=== PATIENT | female | born 1995 | race African-American/Black ===

== ENCOUNTER 2019-03-02 12:30 | Emergency (ER) | payer MEDICAID ==
[~2019-03-02] VITALS: Ht 167.6 cm; Wt 72.6 kg
[2019-03-02 13:53] LABS: Hematocrit 24.8 % (36.0-46.0); Hemoglobin 8.5 g/dL (12.2-16.2); Mean Corpuscular Hemoglobin 31.1 pg (28.0-32.0); Mean Corpuscular Hgb Conc. 34.3 g/dL (32.0-36.0); Mean Corpuscular Volume 90.7 fL (80.0-100.0); Platelet Count (auto) 371 10^3/uL (140-450); Red Blood Cells 2.73 10^6/uL (4.0-5.20); Red Cell Distribution Width 16.5 % (11.8-14.3); White Blood Cell 8.6 10^3/uL (4.4-10.8)
[2019-03-02] MEDS ORDERED: SODIUM CHLORIDE 0.9% 1,000 ML IV ONE ×2 (13:53→16:00)
[2019-03-02 14:03] LABS: Basophils % (manual) 0 (0.0-2.0); Blast Cells 0; Metamyelocytes % 0; Myelocytes % 0; Promyelocytes % 0; Reactive Lymphocytes 0
[2019-03-02 14:07] LABS: Albumin 3.8 g/dL (3.4-5.0); BUN/Creatinine Ratio 7.5; Calcium 8.5 mg/dL (8.5-10.1); Potassium 3.4 mmol/L (3.5-5.1)
[2019-03-02 14:10] LABS: Bilirubin, Total 1.3 mg/dL (0.2-1.0)
[2019-03-02] MEDS ORDERED: PROMETHAZINE HCL 25 MG/ML 1ML IV ONE (14:15)
[2019-03-02] MEDS ORDERED: MORPHINE SULFATE 4 MG/ML SYR/VIAL IV ONE (14:15)
[2019-03-02 14:41] LABS: Band Neutrophils % (manual) 1; Lymphocytes % (manual) 41 (10.0-50.0); Monocytes % (manual) 15 (0-12)
[2019-03-02 14:42] LABS: Eosinophils % (manual) 9 (0-7)
[2019-03-02 15:14] VITALS: BP 106/60
[2019-03-02] MEDS ORDERED: POTASSIUM EFFERVESENT TAB 25 MEQ PO ONE (15:30)
[2019-03-02 16:15] LABS: Urine Bacteria NONE SEEN /hpf (None Seen); Urine Blood Negative /uL (Negative); Urine Specific Gravity 1.009 (1.001-1.035); Urine WBC <1 /hpf (0 - 5)
[2019-03-02 16:40] LABS: Alcohol, Urine < 3.0 mg/dL (0-5); Amphetamine Screen, Urine NEGATIVE (NEGATIVE); Barbiturate Scree,Urine NEGATIVE (NEGATIVE); Benzodiazephine Screen, Urine NEGATIVE (NEGATIVE); Cannabinoid Screen, Urine NEGATIVE (NEGATIVE); Cocaine Screen, Urine NEGATIVE (NEGATIVE); Opiate Scree,Urine POSITIVE (NEGATIVE); Phencyclidine Screen, Urine NEGATIVE (NEGATIVE)
== END 2019-03-02 16:33 | disposition left against medical advice (07) ==
LOC: ER 12:36
DX: D57.00 Hb-SS disease with crisis, unspecified (principal); D64.9 Anemia, unspecified; E87.6 Hypokalemia
CPT/HCPCS: 36415; 80053; 80307; 81001; 81025; 83735; 84443; 85007; 85027; 85045; 93005; 94761; 96374; 96375; 99284; J2270; J2550; J7030

== ENCOUNTER 2019-12-17 15:06 | Emergency (ER) | payer MEDICAID ==
[~2019-12-17] VITALS: Ht 172.7 cm; Wt 76.2 kg
[2019-12-17] MEDS ORDERED: HYDROcodone-ACET 10/325MG TAB PO ONE (16:00)
[2019-12-17] MEDS ORDERED: HYDROmorphone HCL 2 MG/ML VL IV ONE ×2 (16:15→18:45)
[2019-12-17] MEDS ORDERED: ONDANSETRON HCL 4 MG/2 ML VIAL IV ONE (16:15)
[2019-12-17] MEDS ORDERED: SODIUM CHLORIDE 0.9% 1,000 ML IV ONE (16:15)
[2019-12-17] MEDS ORDERED: diphenhdrAMINE HCL 50 MG/1 ML VL IV ONE (16:15)
[2019-12-17 16:59] LABS: Basophils # (auto) 0 uL; Eosinophils # (auto) 0 uL; Hemoglobin 11.4 g/dL (12.2-16.2); Monocytes # (auto) 0.5 uL; Neutrophils # (auto) 4.6 uL
[2019-12-17 17:01] LABS: Basophils % (auto) 0.3 % (0.0-2.0); Eosinophils % (auto) 0.7 % (0.0-7.0); Hematocrit 35.3 % (36.0-46.0); Lymphocytes # (auto) 1.9 uL; Mean Corpuscular Hemoglobin 25.5 pg (28.0-32.0); Mean Corpuscular Hgb Conc. 32.3 g/dL (32.0-36.0); Mean Corpuscular Volume 78.9 fL (80.0-100.0); Monocytes % (auto) 7.4 % (0.0-12.0); Neutrophils % (auto) 64.6 % (37.0-80.0); Nucleated Red Blood Cells % 0.2 %; Platelet Count (auto) 294 10^3/uL (140-450); Red Blood Cells 4.48 10^6/uL (4.0-5.20); Red Cell Distribution Width 18.2 % (11.8-14.3); White Blood Cell 7.2 10^3/uL (4.4-10.8)
[2019-12-17 17:19] LABS: Albumin 3.4 g/dL (3.4-5.0); Calcium 8.6 mg/dL (8.5-10.1); Potassium 3.2 mmol/L (3.5-5.1)
[2019-12-17 17:22] LABS: BUN/Creatinine Ratio 10.3; Bilirubin, Total 0.4 mg/dL (0.2-1.0); Total Protein 7.9 g/dL (6.4-8.2)
[2019-12-17 18:06] VITALS: BP 137/80
== END 2019-12-17 19:32 | disposition home or self-care (01) ==
LOC: EDBD 15:06 → ER 15:06
DX: D57.1 Sickle-cell disease without crisis (principal); F17.210 Nicotine dependence, cigarettes, uncomplicated; M79.18 Myalgia, other site
CPT/HCPCS: 36415; 80053; 85025; 85045; 96374; 96375; 99284; J1170; J1200; J2405; J7030; 96376